=== PATIENT | female | born 1995 | race Two or more races ===

== ENCOUNTER 2020-07-27 03:24 | Emergency (ER) | payer MEDICAID ==
[~2020-07-27] VITALS: Ht 162.6 cm; Wt 71.7 kg
[2020-07-27 03:45] VITALS: BP 118/77
--- NOTE | 2020-07-27 03:52 | Emergency Room Report ---
History of Present Illness General Chief Complaint: Flu Like Symptoms Source: Patient Present Illness HPI Patient is a 25-year-old female brought in by presented for who presented for increased generalized body aches and increased fever. Gradual onset of symptoms. Had increased nasal congestion and body aches. Subjective fever. Had few episodes of vomiting. Denies any abdominal pain. Denies any diarrhea .Onset of symptoms over the past few days. 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 COVID-19 Screening: Negative COVID-19 COVID-19 Testing Source: unk Patient History Past Medical History: see triage record Last Menstrual Period: may 2020 Reviewed Nursing Documentation: PMH: Agreed; PSxH: Agreed Nursing Documentation-PMH Past Medical History: No Stated History Review of Systems All Other Systems: negative except mentioned in HPI Physical Exam Vital Signs Date Time Temp Pulse Resp B/P (MAP) Pulse Ox O2 Delivery O2 Flow Rate FiO2 07/27/20 03:32 99.0 85 15 118/77 (91) 98 Room Air Sp02 EP Interpretation: reviewed, normal General Appearance: normal inspection, well appearing, no apparent distress, alert, GCS 15, obese Head: atraumatic ENT: normal ENT inspection, hearing grossly normal, normal voice, other - Rhin ophyma Neck: normal inspection, full range of motion, supple, no bony tend Respiratory: normal inspection, lungs clear, normal breath sounds, no respiratory distress, no retraction, no wheezing Cardiovascular #1: regular rate, rhythm, no edema Gastrointestinal: normal inspection, normal bowel sounds, non tender, soft, no guarding, no hernia Genitourinary: no CVA tenderness Musculoskeletal: normal inspection, back normal, normal range of motion Neurologic: alert, motor strength/tone normal, fireworks maker III-XII nml as tested, oriented x3, responsive, speech normal, normal inspection Psychiatric: normal inspection, judgement/insight normal, mood/affect normal Medical Decision Making Diagnostic Impression: Primary Impression: Viral respiratory infection ER Course Patient presented for generalized body aches. Differential diagnosis includes not limited to urinary tract infection, influenza, coronavirus infection, among others. Because of complexity of patient's case laboratory tests and imaging studies were ordered. Patient was noted to have some symptoms concerning for possible coronavirus infection however given the patient's normal oxygen saturation and lack of respiratory distress patient does not currently meet hospital criteria for coronavirus testing. Patient does not appear to be have any respiratory distress. Patient is advised to have outpatient coronavirus testing performed. She is advised to self quarantine. This medical record is generated with [employer] recovery coach software. There may be some recovery coach discrepancies related to use of this software the patient is advised to follow up with primary care doctor in 1-2 days. Patient is advised to return if any worsening condition or if any changes in status that are concerning. This report is dictated with [employer] recovery coach software which may occasionally lead to discrepancies related to use of this software. Last Vital Signs Date Time Temp Pulse Resp B/P (MAP) Pulse Ox O2 Delivery O2 Flow Rate FiO2 07/27/20 03:32 99.0 85 15 118/77 (91) 98 Room Air Status: improved Disposition: HOME, SELF-CARE Condition: Stable Scripts Loratadine (Claritin*) 10 Mg Tablet 10 MG PO DAILY for Allergies, #30 TAB Prov: Jeison Pearce MD 07/27/20 Referrals: NON PHYSICIAN (PCP) Jeison Pearce MD Jul 27, 2020 03:52
--- NOTE | 2020-07-27 04:18 | Diagnostic Imaging Report ---
EXAM: XR Chest, 1 View CLINICAL HISTORY: SOB TECHNIQUE: Frontal view of the chest. COMPARISON: No previous studies. FINDINGS: Lungs: Unremarkable. No consolidation. Pleural space: Unremarkable. No pneumothorax. Heart: Cardiomediastinal silhouette unremarkable. Mediastinum: See above. Bones/joints: There is osteopenia. No acute rib fractures. Other findings: There is hypoaeration. IMPRESSION: 1. Osteopenia. 2. No active disease. 3. Hypoaeration.
[2020-07-27 04:25] LABS: BASOPHILS % (AUTO) 0.8 % (0.0-2.0); EOSINOPHILS % (AUTO) 5.6 % (0.0-3.0); HEMATOCRIT 38.5 % (37.0-47.0); HEMOGLOBIN 13.6 G/DL (12.0-16.0); LYMPHOCYTES % (AUTO) 25.7 % (20.0-45.0); MEAN CORPUSCULAR VOLUME 94 FL (80-99); MONOCYTES % (AUTO) 5.9 % (1.0-10.0); NEUTROPHILS % (AUTO) 62.1 % (45.0-75.0); PLATELET COUNT 187 K/UL (150-450); RED BLOOD COUNT 4.11 M/UL (4.20-5.40); RED CELL DISTRIBUTION WIDTH 13.3 % (11.6-14.8); WHITE BLOOD COUNT 9.1 K/UL (4.8-10.8)
[2020-07-27 04:32] LABS: APPEARANCE,URINE CLEAR; BILIRUBIN, URINE NEGATIVE (NEGATIVE); GLUCOSE, URINE (UA) NEGATIVE (NEGATIVE); KETONES,URINE 1+ (NEGATIVE); LEUKOCYTE ESTERASE ,URINE 1+ (NEGATIVE); NITRITE,URINE NEGATIVE (NEGATIVE); PH,URINE 5 (4.5-8.0); PROTEIN,URINE 1+ (NEGATIVE); UROBILINOGEN,URINE 1 MG/DL (0.0-1.0)
[2020-07-27 04:33] LABS: COLOR,URINE YELLOW
[2020-07-27 04:36] LABS: ANION GAP 10 mmol/L (5-15); BLOOD UREA NITROGEN 10 mg/dL (7-18); CALCIUM 8.8 MG/DL (8.5-10.1); CARBON DIOXIDE 25 MMOL/L (21-32); CHLORIDE 104 MMOL/L (98-107); CREATININE 0.9 MG/DL (0.55-1.30); POTASSIUM 3.6 MMOL/L (3.5-5.1); SODIUM 139 MMOL/L (136-145)
[2020-07-27 04:41] LABS: ALANINE AMINOTRANSFERASE 20 U/L (12-78); ALBUMIN 3.3 G/DL (3.4-5.0); ALBUMIN/GLOBULIN RATIO 0.7 (1.0-2.7); ALKALINE PHOSPHATASE 69 U/L (46-116); ASPARTATE AMINO TRANSFERASE 15 U/L (15-37); BILIRUBIN,TOTAL 0.2 MG/DL (0.2-1.0)
[2020-07-27] MEDS ORDERED: LORATADINE10 M2 PO (04:50)
[2020-07-27 05:03] VITALS: BP 125/73
== END 2020-07-27 05:05 | disposition home or self-care (01) ==
LOC: EMR 03:42
DX: B34.9 Viral infection, unspecified (principal); J06.9 Acute upper respiratory infection, unspecified; E66.9 Obesity, unspecified; Z68.27 Body mass index [BMI] 27.0-27.9, adult
CPT/HCPCS: 36415; 71045; 80053; 81003; 81025; 85025; 96360; Z7502; 99284